=== PATIENT | female | born 1975 | race Asian ===

== ENCOUNTER 2019-03-31 15:27 | Emergency (ER) | payer OTHER ==
[~2019-03-31] VITALS: Ht 157.5 cm; Wt 136.1 kg
[2019-03-31 16:13] VITALS: BP 160/94; TEMP 98.6
== END 2019-03-31 19:37 | disposition home or self-care (01) ==
LOC: ED 15:27
DX: S93.401A Sprain of unspecified ligament of right ankle, initial encounter (principal); W19.XXXA Unspecified fall, initial encounter
CPT/HCPCS: 96372; 99282; J1885

== ENCOUNTER 2019-04-06 23:31 | Outpatient (CLI) | payer OTHER | END 2019-04-06 23:35 | disposition short-term general hospital (02) | LOC: AMB 23:31 | DX: M54.89 Other dorsalgia (principal) | CPT/HCPCS: A0425; A0427 ==

== ENCOUNTER 2019-04-06 23:40 | Emergency (ER) | payer OTHER ==
[~2019-04-06] VITALS: Ht 157.5 cm; Wt 136.1 kg
[2019-04-07 00:50] VITALS: BP 147/85; TEMP 97.9
== END 2019-04-07 00:50 | disposition home or self-care (01) ==
LOC: ED 23:40
DX: M54.42 Lumbago with sciatica, left side (principal); I10 Essential (primary) hypertension; R60.9 Edema, unspecified; W19.XXXA Unspecified fall, initial encounter
CPT/HCPCS: 96372; 99283; J1885

== ENCOUNTER 2019-04-29 18:11 | Outpatient (CLI) | payer OTHER | END 2019-04-29 18:12 | disposition short-term general hospital (02) | LOC: AMB 18:11 | DX: M54.89 Other dorsalgia (principal); W18.30XA Fall on same level, unspecified, initial encounter; Y92.019 Unspecified place in single-family (private) house as the place of occurrence of the external cause | CPT/HCPCS: A0425; A0429 ==

== ENCOUNTER 2019-04-29 18:15 | Emergency (ER) | payer OTHER ==
[~2019-04-29] VITALS: Ht 157.5 cm; Wt 136.1 kg
[2019-04-29 19:55] VITALS: BP 152/80; TEMP 98.5
== END 2019-04-29 19:55 | disposition home or self-care (01) ==
LOC: ED 18:15
DX: M54.5 Low back pain (principal); W01.198A Fall on same level from slipping, tripping and stumbling with subsequent striking against other object, initial encounter; Y92.002 Bathroom of unspecified non-institutional (private) residence as the place of occurrence of the external cause
CPT/HCPCS: 99283

== ENCOUNTER 2019-05-05 18:39 | Emergency (ER) | payer OTHER ==
[~2019-05-05] VITALS: Ht 157.5 cm; Wt 136.1 kg
[2019-05-05 19:54] VITALS: BP 154/97; TEMP 98.1
== END 2019-05-05 19:54 | disposition home or self-care (01) ==
LOC: ED 18:39
DX: M54.5 Low back pain (principal)
CPT/HCPCS: 96372; 99283; J1885; J2360

== ENCOUNTER 2020-07-07 09:55 | Emergency (ER) | payer OTHER ==
[~2020-07-07] VITALS: Ht 157.5 cm; Wt 136.1 kg
[2020-07-07 10:10] VITALS: BP 187/98; TEMP 98.9
== END 2020-07-07 12:30 | disposition home or self-care (01) ==
LOC: ED 09:55
DX: R10.32 Left lower quadrant pain (principal)
CPT/HCPCS: 99281

== ENCOUNTER 2020-11-21 20:16 | Emergency (ER) | payer OTHER ==
[~2020-11-21] VITALS: Ht 157.5 cm; Wt 122.0 kg
[2020-11-21 20:57] LABS: PLATELET COUNT 370 K/uL (152-353)
[2020-11-21 21:09] LABS: POTASSIUM 3.5 mmol/L (3.6-5.2)
[2020-11-21 23:45] VITALS: BP 180/98; TEMP 98.9
== END 2020-11-21 23:45 | disposition home or self-care (01) ==
LOC: ED 20:16
PROVIDERS: Emergency Medicine Emergency Medical Services
DX: M79.672 Pain in left foot (principal); M79.671 Pain in right foot; W18.39XA Other fall on same level, initial encounter; Y92.89 Other specified places as the place of occurrence of the external cause
CPT/HCPCS: 36415; 80053; 81000; 82550; 82553; 84550; 85027; 96360; 96374; 96375; 96376; 99284; J1885

== ENCOUNTER 2023-07-06 13:00 | Emergency (ER) | payer OTHER ==
[~2023-07-06] VITALS: Ht 157.5 cm; Wt 115.7 kg
[2023-07-06 13:00] VITALS: BP 106/60; TEMP 98.5
== END 2023-07-06 15:00 | disposition home or self-care (01) ==
LOC: ED 13:13
DX: S39.012A Strain of muscle, fascia and tendon of lower back, initial encounter (principal); M54.30 Sciatica, unspecified side
CPT/HCPCS: 81002; 81025; 99282